=== PATIENT | female | born 1965 | race Caucasian/White ===

== ENCOUNTER 2017-12-04 14:18 | Emergency (ER) | payer BC ==
[~2017-12-04] VITALS: Ht 154.9 cm; Wt 84.5 kg
[~2017-12-04 14:18] MED LIST: LEXAPRO10 MG PO; LIPITOR10 MG PO; PRILOSEC40 MG PO
[2017-12-04 18:08] VITALS: BP 125/67
== END 2017-12-04 18:09 | disposition home or self-care (01) ==
LOC: EME 14:18
DX: R07.9 Chest pain, unspecified (principal); F43.9 Reaction to severe stress, unspecified; R06.02 Shortness of breath; R00.0 Tachycardia, unspecified; Z90.49 Acquired absence of other specified parts of digestive tract; Z85.828 Personal history of other malignant neoplasm of skin
CPT/HCPCS: 71046; 93005; 99281; 99284